=== PATIENT | female | born 1965 | race Two or more races ===

== ENCOUNTER → 2022-07-15 | Emergency (ER) | payer OTHER ==
[~2022-07-15] VITALS: Ht 167.6 cm; Wt 74.8 kg
[~2022-07-15] MED LIST: SYNTHROID75 MCG PO
== END | disposition home or self-care (01) ==
LOC: ER 12:01
DX: H93.12 Tinnitus, left ear (principal)

== ENCOUNTER 2024-07-18 13:10 | Emergency (ER) | payer OTHER ==
[~2024-07-18] VITALS: Ht 152.4 cm; Wt 63.5 kg
[2024-07-18] MEDS ORDERED: KETOROLAC TROMETHAMINE 60 MG VIAL IM ONE ×2 (15:30→15:40)
[2024-07-18] MEDS ORDERED: ORPHENADRINE CITRATE 30 MG/ML AMPUL IM ONE (15:30)
[2024-07-18] MEDS ORDERED: ORPHENADRINE CITRATE 30 MG/ML AMPUL ONE (15:40)
[2024-07-18] MEDS ORDERED: DICLOFENAC SODI50 MG PO (17:40)
[2024-07-18] MEDS ORDERED: NORFLEX100MG PO (17:40)
== END 2024-07-18 17:54 ==
LOC: ER 13:10
DX: S30.0XXA Contusion of lower back and pelvis, initial encounter (principal); W19.XXXA Unspecified fall, initial encounter; Y93.89 Activity, other specified; Y92.89 Other specified places as the place of occurrence of the external cause; Y99.8 Other external cause status; M54.50 Low back pain, unspecified; E03.8 Other specified hypothyroidism